=== PATIENT | female | born 1995 | race Caucasian/White ===

== ENCOUNTER 2020-12-30 16:03 | Outpatient (CLI) | payer BC, SELFPAY | END 2020-12-30 16:04 | disposition home or self-care (01) | LOC: ANHCOVIDVC 16:04 | PROVIDERS: PCP Physician Assistant | DX: Z23 Encounter for immunization (principal) | CPT/HCPCS: 0001A; 91300 ==

== ENCOUNTER 2021-01-20 16:04 | Outpatient (CLI) | payer BC, SELFPAY | END 2021-01-20 16:05 | disposition home or self-care (01) | LOC: ANHCOVIDVC 16:04 | PROVIDERS: PCP Physician Assistant | DX: Z23 Encounter for immunization (principal) | CPT/HCPCS: 0002A; 91300 ==

== ENCOUNTER 2021-02-12 16:19 | Outpatient (CLI) | payer BC, SELFPAY ==
[2021-02-12 17:47] LABS: D Dimer 0.27 ug/mL (<0.48)
== END 2021-02-12 16:20 | disposition home or self-care (01) ==
LOC: ANHLAB 16:24
PROVIDERS: PCP Physician Assistant; Visit Provider Physician Assistant
DX: R07.81 Pleurodynia (principal)
CPT/HCPCS: 36415; 85380